=== PATIENT | female | born 1960 | race Caucasian/White ===

== ENCOUNTER 2018-10-19 15:53 | Emergency (ER) | payer BC | END 2018-10-19 19:08 | disposition home or self-care (01) | LOC: E/R 15:53 | DX: S89.91XA Unspecified injury of right lower leg, initial encounter (principal); X50.3XXA Overexertion from repetitive movements, initial encounter; Y92.9 Unspecified place or not applicable; Z72.0 Tobacco use | CPT/HCPCS: 73562; 99283-25 ==